=== PATIENT | male | born 1955 | race Caucasian/White ===

== ENCOUNTER 2019-05-21 01:56 | Emergency (ER) | payer OTHER ==
[~2019-05-21] VITALS: Ht 154.9 cm; Wt 65.9 kg
[2019-05-21 02:31] VITALS: BP 191/85
[2019-05-21] MEDS ORDERED: CLOTRIMAZOLE 1% 15 GM CREAM TP ONE (02:45)
[2019-05-21] MEDS ORDERED: DOXYCYCLINE HYCLATE 100 MG CAPSULE PO ONE (02:45)
== END 2019-05-21 02:47 | disposition home or self-care (01) ==
LOC: EMS 01:57
DX: L03.113 Cellulitis of right upper limb (principal); B36.9 Superficial mycosis, unspecified

== ENCOUNTER 2020-06-23 02:37 | Emergency (ER) | payer OTHER ==
[~2020-06-23] VITALS: Ht 157.5 cm; Wt 65.9 kg
[2020-06-23 04:48] VITALS: BP 135/69
== END 2020-06-23 05:15 | disposition home or self-care (01) ==
LOC: EMS 02:38
DX: L98.9 Disorder of the skin and subcutaneous tissue, unspecified (principal)
CPT/HCPCS: Z7502

== ENCOUNTER 2022-11-14 19:23 | Inpatient (IN) | payer MEDICARE, OTHER ==
[~2022-11-14] VITALS: Ht 160 cm; Wt 58.5 kg
[2022-11-14 21:20] LABS: EOSINOPHILS % (AUTO) 2.2 % (1.0-6.0); HEMOGLOBIN 12.2 g/dL (13.5-17.5); LYMPHOCYTES % (AUTO) 18.8 % (22.0-44.0); MEAN CORPUSCULAR HEMOGLOBIN 29.7 pg (26.0-34.0); MEAN CORPUSCULAR HGB CONC 33.1 G/dL (31.0-37.0); MEAN CORPUSCULAR VOLUME 90 fL (80-100); MONOCYTES # (AUTO) 0.6 K/uL (0.1-1.0); MONOCYTES % (AUTO) 10.8 % (2.0-9.0); NEUTROPHILS # (AUTO) 3.4 K/uL (1.8-7.7); NEUTROPHILS % (AUTO) 67.2 % (40.0-70.0); PLATELET COUNT (AUTO) 156 K/uL (150-450); RED BLOOD CELL COUNT(AUTO) 4.12 MIL/uL (4.50-5.90); RED CELL DISTRIBUTION WIDTH 16.5 % (11.5-14.5)
[2022-11-14] MEDS ORDERED: SODIUM CHLORIDE 0.9% 1,000 ML IV ONE (21:30)
[2022-11-14] MEDS ORDERED: ONDANSETRON HCL 4 MG/2 ML VIAL IVP ONE (21:30)
[2022-11-14] MEDS ORDERED: KETOROLAC TROMETHAMINE 30 MG/ML VIAL IVP ONE (21:30)
[2022-11-14 21:40] LABS: ALKALINE PHOSPHATASE 170 U/L (46-116); ANION GAP 5 mmol/L (8-16); ASPARTATE AMINOTRANSFERASE 276 U/L (15-37); BILIRUBIN,TOTAL 1.3 mg/dL (0.1-1.0); CARBON DIOXIDE 29 mmol/L (22-29); CHLORIDE 103 mmol/L (98-107); GLOMERULAR FILTR. RATE CALC > 60 mL/min (>60); GLUCOSE,RANDOM 93 mg/dL (70-110); POTASSIUM 3.9 mmol/L (3.5-5.1); SODIUM SERUM 137 mmol/L (136-145)
[2022-11-14 21:41] LABS: ALANINE AMINOTRANSFERASE 34 U/L (12-78); ALBUMIN 2.7 g/dL (3.4-5.0); LIPASE 35 U/L (73-393); TOTAL PROTEIN, SERUM 8.1 g/dL (6.4-8.2)
[2022-11-14] MEDS ORDERED: SODIUM CHLORIDE 0.9% 100 ML ONE (21:51)
[2022-11-14] MEDS ORDERED: IOHEXOL 350 MG/ML 100 ML VIAL ONE (21:52)
[2022-11-14] MEDS ORDERED: VANCOMYCIN HCL 1.25 GM in DEXTROSE 5%-WATER 250 ML IV ONE (23:15)
[2022-11-14] MEDS ORDERED: CEFEPIME HCL 2 GM in DEXTROSE 5%-WATER 50 ML IV ONE (23:15)
[2022-11-15] VITALS (7 sets, daily range): BP systolic 114–185; BP diastolic 64–85
[2022-11-15 00:09] LABS: COVID AG,FIA SOURCE NASOPHARYNGEAL
[2022-11-15 00:36] LABS: APPEARANCE,URINE CLEAR (CLEAR); BILIRUBIN,URINE NEGATIVE (NEGATIVE); GLUCOSE, URINE (UA) NEGATIVE (NEGATIVE); KETONES,URINE TRACE mg/dL (NEGATIVE); LEUKOCYTE ESTERASE ,URINE NEGATIVE (NEGATIVE); NITRATE,URINE NEGATIVE (NEGATIVE); OCCULT BLOOD,URINE LARGE (NEGATIVE); PH,URINE 6.5 (5.0-8.0); PROTEIN,URINE 30-70 mg/dL (NEGATIVE); SPECIFIC GRAVITIY, URINE 1.041 (1.003-1.030)
[2022-11-15 00:43] LABS: BACTERIA,URINE None Seen /HPF (None Seen); SQUAMOUS EPITHELIAL CELL,UR Rare /LPF (None Seen); WBC,URINE None Seen /HPF (0-5)
[2022-11-15] MEDS ORDERED: ONDANSETRON HCL 4 MG/2 ML VIAL IVP PRN ×2 (00:45→13:00)
[2022-11-15] MEDS ORDERED: 0.9% SODIUM CHLORIDE 10 ML SYRINGE IVP PRN (00:45)
[2022-11-15] MEDS ORDERED: ACETAMINOPHEN 325 MG TABLET PO PRN ×2 (00:45→13:00)
[2022-11-15] MEDS: HydrALAZINE HCL 20 MG/ML VIAL IVP PRN ×2 (07:40→14:42)
[2022-11-15] MEDS ORDERED: ZOLPIDEM TARTRATE 5 MG TABLET PO PRN (13:00)
[2022-11-15] MEDS ORDERED: MORPHINE SULFATE 2 MG/ML SYRINGE IVP PRN (13:00)
[2022-11-15] MEDS ORDERED: BISACODYL 10 MG RECTAL RECTAL SUPPOSITORY PR PRN (13:00)
[2022-11-15] MEDS ORDERED: *CLINICAL-CEFEPIME DOSING CLINICAL ONE (13:00)
[2022-11-15] MEDS ORDERED: MAGNESIUM HYDROXIDE SUSPENSION 30 ML UDCUP PO PRN (13:00)
[2022-11-15] MEDS ORDERED: HYDROCODONE/ACETAMINOPHEN 5-325 MG TABLET PO PRN (13:00)
[2022-11-15] MEDS: CEFEPIME HCL 2 GM in DEXTROSE 5%-WATER 50 ML IV SCH (14:19)
[2022-11-15] MEDS ORDERED: GADOTERATE MEGLUMINE 10 MMOL/20 ML VIAL IVP ONE (14:36)
[2022-11-15] MEDS: MetroNIDAZOLE 500 MG TABLET PO SCH (16:15)
[2022-11-15] MEDS: AmLODIPine BESYLATE 5 MG TABLET PO SCH (17:25)
[2022-11-15] MEDS: DOCUSATE SODIUM 100 MG CAPSULE PO SCH (19:49)
[2022-11-15] MEDS: VANCOMYCIN 1GM/WATER(PEG/NADA) 200 ML IV SCH (19:49)
[2022-11-16] VITALS: BP 159/69
[2022-11-16] MEDS: MetroNIDAZOLE 500 MG TABLET PO SCH ×2 (00:13→08:20)
[2022-11-16 00:55] VITALS: BP 166/72
[2022-11-16] MEDS ORDERED: SODIUM CHLORIDE 0.9% 250 ML IV ONE (02:16)
[2022-11-16] MEDS: CEFEPIME HCL 2 GM in DEXTROSE 5%-WATER 50 ML IV SCH (02:21)
[2022-11-16 04:00] VITALS: BP 143/85
[2022-11-16 06:27] LABS: BASOPHILS % (AUTO) 1.1 % (0.0-2.0); EOSINOPHILS % (AUTO) 1.4 % (1.0-6.0); HEMATOCRIT 38.4 % (41-53); HEMOGLOBIN 12.8 g/dL (13.5-17.5); LYMPHOCYTES # (AUTO) 0.8 K/uL (1.0-4.8); MEAN CORPUSCULAR HEMOGLOBIN 29.7 pg (26.0-34.0); MEAN CORPUSCULAR HGB CONC 33.3 G/dL (31.0-37.0); MEAN CORPUSCULAR VOLUME 89 fL (80-100); MONOCYTES # (AUTO) 0.4 K/uL (0.1-1.0); MONOCYTES % (AUTO) 10.3 % (2.0-9.0); NEUTROPHILS % (AUTO) 68.2 % (40.0-70.0); PLATELET COUNT (AUTO) 167 K/uL (150-450); RED CELL DISTRIBUTION WIDTH 16.8 % (11.5-14.5)
[2022-11-16 06:49] LABS: ALANINE AMINOTRANSFERASE 33 U/L (12-78); ALBUMIN 2.4 g/dL (3.4-5.0); ALKALINE PHOSPHATASE 159 U/L (46-116); ANION GAP 9 mmol/L (8-16); ASPARTATE AMINOTRANSFERASE 279 U/L (15-37); BILIRUBIN,TOTAL 1.2 mg/dL (0.1-1.0); CALCIUM, TOTAL 8.6 mg/dL (8.8-10.5); CARBON DIOXIDE 27 mmol/L (22-29); CHLORIDE 102 mmol/L (98-107); GLOMERULAR FILTR. RATE CALC > 60 mL/min (>60); GLUCOSE,RANDOM 93 mg/dL (70-110); POTASSIUM 3.7 mmol/L (3.5-5.1); SODIUM SERUM 138 mmol/L (136-145); TOTAL PROTEIN, SERUM 7.6 g/dL (6.4-8.2)
[2022-11-16 07:37] VITALS: BP 153/63
[2022-11-16] MEDS: VANCOMYCIN 1GM/WATER(PEG/NADA) 200 ML IV SCH (08:18)
[2022-11-16] MEDS: AmLODIPine BESYLATE 5 MG TABLET PO SCH (08:20)
[2022-11-16] MEDS: DOCUSATE SODIUM 100 MG CAPSULE PO SCH (08:21)
[2022-11-16] MEDS ORDERED: PANTOPRAZOLE SODIUM 40 MG DR TABLET PO SCH (09:00)
[2022-11-16] MEDS ORDERED: CEFEPIME HCL 2 GM in DEXTROSE 5%-WATER 50 ML IV SCH (10:00)
[2022-11-16 11:18] VITALS: BP 134/75
== END 2022-11-16 12:40 | disposition left against medical advice (07) | DRG 539 ==
LOC: EMS 19:24 → ICU 11-15 01:51 → 5S 11-16 00:50
PROVIDERS: ADMIT Hospitalist; ATTEND Hospitalist
DX: M86.8X8 Other osteomyelitis, other site (principal); I62.00 Nontraumatic subdural hemorrhage, unspecified; K76.89 Other specified diseases of liver; Z53.21 Procedure and treatment not carried out due to patient leaving prior to being seen by health care provider; Z20.822 Contact with and (suspected) exposure to COVID-19; F17.210 Nicotine dependence, cigarettes, uncomplicated; D49.6 Neoplasm of unspecified behavior of brain; N28.1 Cyst of kidney, acquired; D64.9 Anemia, unspecified; Z85.828 Personal history of other malignant neoplasm of skin; Z85.841 Personal history of malignant neoplasm of brain; Z92.21 Personal history of antineoplastic chemotherapy
CPT/HCPCS: 70450; 70553; 74177; 80053; 81001; 82105; 83605; 83690; 85025; 87040; 87070; 87081; 87186; 87205; 97162; 99285; G0378; J0360; J0692; J1885; J2405; J3370; J7030; J7050; J7060; Q9967

== ENCOUNTER 2022-11-30 10:20 | Emergency (ER) | payer MEDICARE, OTHER ==
[~2022-11-30] VITALS: Ht 157.5 cm; Wt 63.6 kg
[2022-11-30 11:13] VITALS: TEMP 98.5
[2022-11-30 11:45] LABS: BASOPHILS % (AUTO) 0.4 % (0.0-2.0); EOSINOPHILS % (AUTO) 0.6 % (1.0-6.0); HEMOGLOBIN 12.6 g/dL (13.5-17.5); LYMPHOCYTES # (AUTO) 0.6 K/uL (1.0-4.8); LYMPHOCYTES % (AUTO) 11.3 % (22.0-44.0); MEAN CORPUSCULAR HEMOGLOBIN 30.8 pg (26.0-34.0); MEAN CORPUSCULAR HGB CONC 33.3 G/dL (31.0-37.0); MEAN CORPUSCULAR VOLUME 93 fL (80-100); MONOCYTES # (AUTO) 0.4 K/uL (0.1-1.0); MONOCYTES % (AUTO) 8.4 % (2.0-9.0); NEUTROPHILS # (AUTO) 4.1 K/uL (1.8-7.7); NEUTROPHILS % (AUTO) 79.3 % (40.0-70.0); PLATELET COUNT (AUTO) 147 K/uL (150-450); RED CELL DISTRIBUTION WIDTH 19.7 % (11.5-14.5)
[2022-11-30] MEDS ORDERED: CEFEPIME HCL 2 GM in DEXTROSE 5%-WATER 50 ML IV ONE (11:45)
[2022-11-30] MEDS ORDERED: VANCOMYCIN HCL 1.25 GM in DEXTROSE 5%-WATER 250 ML IV ONE (11:45)
[2022-11-30] MEDS ORDERED: MetroNIDAZOLE 500 MG/NACL 100 ML IV ONE (11:45)
[2022-11-30] MEDS ORDERED: IOHEXOL 350 MG/ML 100 ML VIAL ONE ×2 (11:54)
[2022-11-30] MEDS ORDERED: SODIUM CHLORIDE 0.9% 100 ML ONE (11:54)
[2022-11-30 12:18] LABS: ANION GAP 7 mmol/L (8-16); CARBON DIOXIDE 27 mmol/L (22-29); CHLORIDE 102 mmol/L (98-107); CREATININE 0.74 mg/dL (0.60-1.30); GLOMERULAR FILTR. RATE CALC > 60 mL/min (>60); GLUCOSE,RANDOM 78 mg/dL (70-110); POTASSIUM 4.4 mmol/L (3.5-5.1); SODIUM SERUM 136 mmol/L (136-145)
[2022-11-30 12:35] LABS: ALANINE AMINOTRANSFERASE 44 U/L (12-78); ALBUMIN 2.4 g/dL (3.4-5.0); ALKALINE PHOSPHATASE 203 U/L (46-116); ASPARTATE AMINOTRANSFERASE 729 U/L (15-37); BILIRUBIN,TOTAL 2.5 mg/dL (0.1-1.0); TOTAL PROTEIN, SERUM 7.5 g/dL (6.4-8.2)
[2022-11-30 12:45] LABS: LACTIC ACID 2.4 mmol/L (0.4-2.0)
[2022-11-30] MEDS ORDERED: SODIUM CHLORIDE 0.9% 1,800 ML IV ONE (13:15)
[2022-11-30] MEDS ORDERED: LABETALOL HCL 5 MG/ML 20 ML VIAL IVP ONE (16:45)
[2022-11-30 18:36] VITALS: BP 173/72; PULSE 59; RESP 18
[2022-11-30 19:25] LABS: AMPHET/METH SCREEN,URINE POSITIVE (NEGATIVE); BARBITURATE SCREEN, URINE NEGATIVE (NEGATIVE); BENZODIAZEPINES SCREEN,URINE NEGATIVE (NEGATIVE); CANNABINOID SCREEN,URINE NEGATIVE (NEGATIVE); COCAINE SCREEN,URINE NEGATIVE (NEGATIVE); METHADONE SCREEN, URINE NEGATIVE (NEGATIVE); OPIATE SCREEN,URINE NEGATIVE (NEGATIVE); PHENCYCLIDINE SCREEN,URINE NEGATIVE (NEGATIVE)
== END 2022-11-30 21:03 | disposition short-term general hospital (02) ==
LOC: EMS 10:26
DX: M86.8X8 Other osteomyelitis, other site (principal); F17.210 Nicotine dependence, cigarettes, uncomplicated; Z98.890 Other specified postprocedural states
CPT/HCPCS: 99285; 96365; 70470; 96361; 96375; 80053; 83605; 85025; 87040; 36415; 80307 ×2; G0480; J0692; J3490 ×2; J3370; Q9967; J7060 ×2; J7030; J7050